=== PATIENT | female | born 1970 | race African-American/Black ===

== ENCOUNTER 2021-03-28 22:44 | Emergency (ER) | payer MEDICAID ==
[~2021-03-28] VITALS: Ht 162.6 cm; Wt 91.0 kg
[2021-03-29] MEDS ORDERED: CEPH500T PO (02:00)
[2021-03-29] MEDS ORDERED: DIPH25CA83 PO (02:00)
[2021-03-29] MEDS ORDERED: NAPR-681 PO (02:00)
[2021-03-29] MEDS ORDERED: HYDR-4622 TP (02:00)
[2021-03-29 02:07] VITALS: BP 150/92
== END 2021-03-29 02:09 | disposition home or self-care (01) ==
LOC: ER 22:44
DX: S50.861A Insect bite (nonvenomous) of right forearm, initial encounter (principal); S70.361A Insect bite (nonvenomous), right thigh, initial encounter; I10 Essential (primary) hypertension; J45.909 Unspecified asthma, uncomplicated; W57.XXXA Bitten or stung by nonvenomous insect and other nonvenomous arthropods, initial encounter; Y93.89 Activity, other specified; Y92.018 Other place in single-family (private) house as the place of occurrence of the external cause
CPT/HCPCS: 99283